=== PATIENT | female | born 1980 | race African-American/Black ===

== ENCOUNTER 2020-06-02 20:28 | Emergency (ER) | payer MEDICAID ==
[~2020-06-02] VITALS: Ht 154.9 cm; Wt 118.6 kg
[2020-06-02 20:35] VITALS: TEMP 98.3
[2020-06-02] MEDS ORDERED: SEPTRA DS 8001 TAB PO (22:16)
[2020-06-02] MEDS ORDERED: NORCO 325 MG-51 TAB PO (22:16)
[2020-06-02 22:25] VITALS: BP 148/92; PULSE 89
== END 2020-06-02 22:28 | disposition home or self-care (01) ==
LOC: COL.ER 20:28
DX: L02.411 Cutaneous abscess of right axilla (principal); F17.200 Nicotine dependence, unspecified, uncomplicated

== ENCOUNTER 2020-06-04 19:30 | Emergency (ER) | payer MEDICAID ==
[~2020-06-04] VITALS: Ht 154.9 cm; Wt 118.6 kg
[~2020-06-04 19:30] MED LIST: NORCO 325 MG-51 TAB PO; SEPTRA DS 8001 TAB PO
[2020-06-04 19:36] VITALS: TEMP 97
[2020-06-04 20:10] VITALS: BP 144/96; PULSE 101
== END 2020-06-04 20:10 | disposition home or self-care (01) ==
LOC: COL.ER 19:30
DX: L02.411 Cutaneous abscess of right axilla (principal); F17.210 Nicotine dependence, cigarettes, uncomplicated

== ENCOUNTER 2020-11-04 20:05 | Emergency (ER) | payer MEDICAID ==
[~2020-11-04] VITALS: Ht 154.9 cm; Wt 106.4 kg
[~2020-11-04 20:05] MED LIST changes: +MOBIC15 MG PO
[2020-11-04 20:10] VITALS: TEMP 98.1
[2020-11-04] MEDS ORDERED: DOXYCYCLINE 10100 MG PO (21:57)
[2020-11-04 22:02] LABS: BASO # 0.1 (0.0-0.2); BASO % 0.5 % (0.0-2.0); EOS % 0.1 % (0-4.0); GRAN # 7.9 (1.4-6.5); GRAN % 75.4 % (42.2-75.2); HEMATOCRIT 40.1 % (37.0-47.0); HEMOGLOBIN 12.6 g/dl (12.5-16.0); LYMPH # 1.8 (1.2-3.4); MEAN CELL VOLUME 77 fl (80.0-100.0); MEAN CORPUSCULAR HEMOGLOBIN 24 pg (27.0-31.0); MEAN CORPUSCULAR HGB CONC 31 g/dl (33.0-37.0); MEAN PLATELET VOLUME 10.1 fl (7.4-10.4); MONO # 0.7 (0.1-0.6); MONO % 6.6 % (1.7-9.3); PLATELET COUNT 297 K/mm3 (130-400); RED BLOOD COUNT 5.23 M/mm3 (4.10-5.30); REDCELL DISTRIBUTION WIDTH-CV 17.7 % (11.5-14.5)
[2020-11-04 22:11] LABS: CREATINE KINASE 124 U/L (30-135)
[2020-11-04 22:25] LABS: TROPONIN-I < 0.012 ng/mL (0.000-0.035)
[2020-11-04] MEDS ORDERED: PREDNISONE20 MG PO (22:58)
[2020-11-04] MEDS ORDERED: PROAIR HFA0.09 MG/AC IH (22:58)
[2020-11-04 23:27] LABS: MUCOUS Present /lpf; PH 8 (5-8); URINE APPEARANCE Cloudy; URINE BACTERIA Rare /hpf; URINE BILIRUBIN Negative (NEGATIVE); URINE BLOOD Negative (NEGATIVE); URINE COLOR Yellow; URINE GLUCOSE Negative (NEGATIVE); URINE KETONE Trace (NEGATIVE); URINE LEUKOCYTE ESTERASE 1+ (NEGATIVE); URINE NITRATE Negative (NEGATIVE); URINE PROTEIN(semi-quant) 1+ (NEGATIVE); URINE UROBILINOGEN Negative (NEGATIVE); URINE WBC 20-50 /hpf
[2020-11-04 23:35] VITALS: BP 134/91; PULSE 92
[2020-11-05 14:04] LABS: COLLECTION METHOD CLEAN CATCH
== END 2020-11-04 23:30 | disposition home or self-care (01) ==
LOC: COL.ER 20:05
PROVIDERS: Emergency Medicine
DX: J18.9 Pneumonia, unspecified organism (principal); F17.210 Nicotine dependence, cigarettes, uncomplicated; Z86.16 Personal history of COVID-19
CPT/HCPCS: J0456; J0696; J1100; J2405; J7030; J7050

== ENCOUNTER → 2021-04-18 | Outpatient (CLI) | payer MEDICAID ==
[~2021-04-18] MED LIST changes: +DOXYCYCLINE 10100 MG PO; +PREDNISONE20 MG PO; +PROAIR HFA0.09 MG/AC IH
== END ==
LOC: COL.RAD 13:18
DX: D47.2 Monoclonal gammopathy (principal)

== ENCOUNTER → 2022-01-08 | Outpatient (CLI) | payer MEDICAID | LOC: COL.RAD 09:55 | DX: M47.816 Spondylosis without myelopathy or radiculopathy, lumbar region (principal); R25.1 Tremor, unspecified ==

== ENCOUNTER → 2022-03-26 | Outpatient (CLI) | payer MEDICAID | LOC: COL.RAD 12:05 | DX: D47.2 Monoclonal gammopathy (principal) ==

== ENCOUNTER → 2022-04-08 | Outpatient (CLI) | payer MEDICAID | LOC: MC.RAD 10:28 | DX: Z12.31 Encounter for screening mammogram for malignant neoplasm of breast (principal) ==

== ENCOUNTER → 2022-04-30 | Outpatient (CLI) | payer MEDICAID | LOC: COL.RAD 07:47 | DX: M50.220 Other cervical disc displacement, mid-cervical region, unspecified level (principal); M48.02 Spinal stenosis, cervical region; D47.2 Monoclonal gammopathy ==

== ENCOUNTER → 2022-05-02 | Outpatient (CLI) | payer MEDICAID | LOC: COL.RAD 08:39 | DX: M51.24 Other intervertebral disc displacement, thoracic region (principal); D47.2 Monoclonal gammopathy ==

== ENCOUNTER → 2022-07-09 | Outpatient (CLI) | payer MEDICAID | LOC: COL.RAD 13:57 | DX: B40.9 Blastomycosis, unspecified (principal); R06.00 Dyspnea, unspecified ==

== ENCOUNTER 2023-02-10 19:53 | Emergency (ER) | payer MEDICAID ==
[~2023-02-10] VITALS: Ht 154.9 cm; Wt 124.5 kg
[2023-02-10] MEDS ORDERED: ZOFRAN ODT4 MG PO (21:38)
[2023-02-10 21:46] VITALS: BP 129/77; PULSE 115; TEMP 99.4
== END 2023-02-10 22:00 | disposition home or self-care (01) ==
LOC: COL.ER 19:53
DX: K52.9 Noninfective gastroenteritis and colitis, unspecified (principal); R51.9 Headache, unspecified; F17.210 Nicotine dependence, cigarettes, uncomplicated; Z28.310 Unvaccinated for COVID-19
CPT/HCPCS: J1885; J2405; J7120

== ENCOUNTER 2023-08-17 10:00 | Outpatient (RCR) | payer MEDICAID ==
[2023-08-07 10:32] VITALS: BP 145/86; PULSE 89; TEMP 98.7
[2023-08-10 13:12] VITALS: BP 136/81; PULSE 83; TEMP 98.6
[2023-08-12 10:49] VITALS: BP 126/85; PULSE 76; TEMP 98.7
[2023-08-14 10:06] VITALS: BP 143/89; PULSE 82; TEMP 98.3
[~2023-08-17] VITALS: Ht 154.9 cm; Wt 122.8 kg
[~2023-08-17 10:00] MED LIST changes: +CRUTCHES MC; +ELIQUIS 5MG PO; +GLUCOPHAGE500 MG/TAB PO; +HCTZ 25MG TAB25 MG PO; +MULTIPLE VITAMI1 CAP PO; +PROBIOTIC BLEN1 EACH PO; +VITAMIN B COMPL1 SGL PO; +VITAMIN D31000 I1; +ZOFRAN ODT4 MG PO
[2023-08-17 10:10] VITALS: BP 150/77; PULSE 86; TEMP 97.8
== END 2023-08-17 10:41 | disposition home or self-care (01) ==
LOC: EUO 10:00
DX: E61.1 Iron deficiency (principal)
CPT/HCPCS: J1756